=== PATIENT | female | born 1965 | race Caucasian/White ===

== ENCOUNTER 2019-12-23 20:37 | Emergency (ER) | payer BC ==
[~2019-12-23] VITALS: Ht 172.7 cm; Wt 72.1 kg
[2019-12-23] MEDS ORDERED: SYNTHROID75 MCG PO (21:04)
== END 2019-12-23 21:57 | disposition home or self-care (01) ==
LOC: ED 20:37
DX: S81.811A Laceration without foreign body, right lower leg, initial encounter (principal); Z23 Encounter for immunization; E03.9 Hypothyroidism, unspecified; Z88.8 Allergy status to other drugs, medicaments and biological substances; Z79.899 Other long term (current) drug therapy; W22.8XXA Striking against or struck by other objects, initial encounter
CPT/HCPCS: 90471; 90715; 99282-25